=== PATIENT | male | born 1960 | race Native Hawaiian/Other Pacific Islander ===

== ENCOUNTER 2017-12-19 19:29 | Emergency (ER) | payer MEDICARE, OTHER ==
[2017-12-19] MEDS ORDERED: SODIUM CHLORIDE 0.9% 1,000 ML IV ONE ×3 (19:45→22:02)
[2017-12-19] MEDS ORDERED: PIPERACILLIN/TAZOBACTAM 4.5 GM in SODIUM CHLORIDE 0.9% MINIBAG 100 ML IV STA (19:54)
--- NOTE | 2017-12-19 19:58 | ED Physician Documentation ---
History of Present Illness - Stated complaint Stated Complaint: RT TOE INFECTION - Chief complaint Chief Complaint: General - History obtained from History obtained from: Patient, Family - History of Present Illness Timing: How many weeks ago (1) Pain level max: 0 Pain level now: 0 Improved by: nothing Worsened by: walking - Additonal information Additional information: Patient is a 57-year-old diabetic male with a history of hemodialysis which he stopped in 2015 after receiving a kidney transplant at [facility]. Still seen by the transplant group every 3 months. He is on Prograf and Rapamune. He has had a necrotic toe for at least the last week that is being followed by his primary care provider, the infection is now spread over the foot, increased swelling to the dorsum and plantar aspect of the foot. No fevers. Review of Systems Ten Systems: 10 systems reviewed and negative Constitutional: denies: Fever, Chills Nose: denies: Rhinorrhea / runny nose, Congestion Respiratory: denies: Cough GI: denies: Nausea, Vomiting, Diarrhea Skin: denies: Rash Musculoskeletal: denies: Neck pain, Back pain Neurologic: denies: Headache PD PAST MEDICAL HISTORY - Past Medical History Past Medical History: Yes Cardiovascular: Hypertension, High cholesterol Endocrine/Autoimmune: Type 2 diabetes - Past Surgical History Past Surgical History: Yes - Present Medications Home Medications: Ambulatory Orders Medication Instructions Recorded Confirmed Amlodipine/Atorvastatin 2.5 mg PO DAILY 12/19/17 12/19/17 [Amlodipine-Atorvast 2.5-20 mg] Calcitriol 0.25 mcg PO DAILY 12/19/17 12/19/17 Carvedilol [Coreg] 25 mg PO BID 12/19/17 12/19/17 Ergocalciferol [Vitamin D2] 50,000 unit PO 12/19/17 Insulin Aspart [NovoLOG] 0 units SQ DAILY 12/19/17 12/19/17 Insulin Detemir [Levemir Flextouch] 30 unit SUBQ BID 12/19/17 12/19/17 Mycophenolate Sodium [Mycophenolic 180 mg PO BID 12/19/17 12/19/17 Acid] Tacrolimus 1 mg PO BID 12/19/17 12/19/17 - Allergies Allergies/Adverse Reactions: Allergies Allergy/AdvReac Type Severity Reaction Status Date / Time No Known Drug Allergies Allergy Verified 12/19/17 19:55 - Social History Does the pt smoke?: No Smoking Status: Never smoker Does the pt drink ETOH?: No Does the pt have substance abuse?: No - Immunizations Immunizations are current?: Yes - POLST Patient has POLST: No PD ED PE NORMAL - Vitals Vital signs reviewed: Yes - General General: Alert and oriented X 3, No acute distress, Well developed/nourished - HEENT HEENT: Moist mucous membranes - Neck Neck: Supple, no meningeal sign - Cardiac Cardiac: RRR, Strong equal pulses - Respiratory Respiratory: No respiratory distress, Clear bilaterally - Abdomen Abdomen: Soft, Non tender, Non distended - Derm Derm: Warm and dry - Neuro Neuro: Alert and oriented X 3 Results - Vitals Vitals: Vital Signs - 24 hr 12/19/17 12/19/17 12/19/17 19:39 19:42 20:42 Temperature 36.4 C L Heart Rate 85 80 Respiratory 14 18 Rate Blood Pressure 74/47 L 100/50 L O2 Saturation 99 12/19/17 12/19/17 12/19/17 21:15 21:45 22:15 Temperature Heart Rate 81 80 79 Respiratory 20 20 18 Rate Blood Pressure 101/54 L 117/70 117/70 O2 Saturation 95 95 100 12/19/17 22:45 Temperature Heart Rate 77 Respiratory 18 Rate Blood Pressure 108/61 O2 Saturation 97 Oxygen O2 Source Room air - Labs Labs: Laboratory Tests 12/19/17 12/19/17 12/19/17 19:50 19:50 19:50 WBC 19.9 H RBC 3.86 L Hgb 11.0 L Hct 33.7 L MCV 87.3 MCH 28.5 MCHC 32.6 RDW 13.9 Plt Count 250 MPV 7.6 Neut # (Auto) 18.8 H Lymph # (Auto) 0.4 L [place] # (Auto) 0.7 Eos # (Auto) 0.0 Baso # (Auto) 0.0 Absolute Nucleated RBC 0.00 Nucleated RBC % 0.0 Sodium 123 L Potassium 4.5 Chloride 89 L Carbon Dioxide 19 L Anion Gap 15.0 H BUN 60 H Creatinine 2.6 H Estimated GFR (MDRD) 26 L Glucose 354 H Lactic Acid 1.5 Calcium 8.7 Total Bilirubin 1.0 AST 20 ALT 18 Alkaline Phosphatase 67 Total Protein 7.2 Albumin 2.7 L Globulin 4.5 H Albumin/Globulin Ratio 0.6 L Lipase 20 L - Rads (name of study) R foot xray Radiology: Prelim report reviewed, EMP read contemporaneously, See rad report ( No fracture or focal bony lesion. Soft tissue swelling with subcutaneous air) PD MEDICAL DECISION MAKING - ED course Complexity details: reviewed results, re-evaluated patient, considered differential, d/w patient, d/w family, d/w financial sales consultant ED course: Patient is a 57-year-old diabetic male who presents to the emergency department with a necrotic right fifth toe, gangrenous infection spreading at least through the midfoot on the plantar aspect. Given Vanco and Zosyn after discussion with Dr. Velazquez, hospitalist at [facility] who graciously accepts in transfer at 1999. Blood cultures drawn. Lactate is normal. White blood cell count 19.9. Right foot x-ray was performed. Patient will be transferred to [facility] for further care as that was where his transplant was done and the transplant team still follows him. This document was made in part using voice recognition software. While efforts are made to proofread this document, sound alike and grammatical errors may occur. - Sepsis Event Vital Signs: Vital Signs - 24 hr 12/19/17 12/19/17 12/19/17 19:39 19:42 20:42 Temperature 36.4 C L Heart Rate 85 80 Respiratory 14 18 Rate Blood Pressure 74/47 L 100/50 L O2 Saturation 99 12/19/17 12/19/17 12/19/17 21:15 21:45 22:15 Temperature Heart Rate 81 80 79 Respiratory 20 20 18 Rate Blood Pressure 101/54 L 117/70 117/70 O2 Saturation 95 95 100 12/19/17 22:45 Temperature Heart Rate 77 Respiratory 18 Rate Blood Pressure 108/61 O2 Saturation 97 Oxygen O2 Source Room air Departure - Departure Disposition: 02 Transfer Acute Care Hosp Clinical Impression: Gangrenous toe, Diabetic foot infection, Foot abscess, right Condition: Stable
[2017-12-19 20:04] LABS: BASOPHILS % (AUTO) 0.2 %; LYMPHOCYTES # (AUTO) 0.4 10^3/uL (1.5-3.5); MEAN CORPUSCULAR HEMOGLOBIN 28.5 pg (27.0-31.0); MEAN CORPUSCULAR HGB CONC 32.6 g/dL (32.0-36.0); MEAN CORPUSCULAR VOLUME 87.3 fL (80.0-94.0); MEAN PLATELET VOLUME 7.6 fL (7.4-11.4); MONOCYTES # (AUTO) 0.7 10^3/uL (0.0-1.0); MONOCYTES % (AUTO) 3.5 %; NEUTROPHILS # (AUTO) 18.8 10^3/uL (1.5-6.6); NEUTROPHILS % (AUTO) 94.3 %; PLT - PLATELET COUNT 250 10^3/uL (130-450); RED BLOOD COUNT 3.86 10^6/uL (4.70-6.10); RED CELL DISTRIBUTION WIDTH 13.9 % (12.0-15.0); WHITE BLOOD COUNT 19.9 x10^3/uL (4.8-10.8)
[2017-12-19] MEDS ORDERED: VANCOMYCIN INJ 1 GM in SODIUM CHLORIDE 0.9% 500 ML IV STA (20:10)
[2017-12-19 20:14] LABS: ALBUMIN 2.7 g/dL (3.2-5.5); ALBUMIN/GLOBULIN RATIO 0.6 (1.0-2.2); CALCIUM 8.7 mg/dL (8.5-10.3); CREATININE 2.6 mg/dL (0.6-1.2); TOTAL PROTEIN 7.2 g/dL (6.7-8.2)
--- NOTE | 2017-12-19 20:47 | XRAY Report ---
Procedure Date: 12/19/2017 Accession Number: [id number] / [id number] Procedure: XR - Foot 3 View RT CPT Code: FULL RESULT: EXAM: RIGHT FOOT RADIOGRAPHY EXAM DATE: 12/19/2017 08:16 PM. CLINICAL HISTORY: Necrotic 5th toe, swelling plantar. COMPARISON: None. TECHNIQUE: 3 views. FINDINGS: Bones: No fracture or focal bony lesion. Joints: No evidence of dislocation. Soft Tissues: There is extensive subcutaneous air. There is diffuse soft tissue swelling. There are vascular calcifications. IMPRESSION: 1. No fracture or focal bony lesion. 2. There is soft tissue swelling with subcutaneous air. RADIA
[2017-12-19 23:29] VITALS: BP 101/59
== END 2017-12-19 23:32 | disposition short-term general hospital (02) ==
LOC: ED 19:29
DX: E11.52 Type 2 diabetes mellitus with diabetic peripheral angiopathy with gangrene (principal); I96 Gangrene, not elsewhere classified; L02.611 Cutaneous abscess of right foot; Z79.4 Long term (current) use of insulin; I10 Essential (primary) hypertension; E78.00 Pure hypercholesterolemia, unspecified; Z94.0 Kidney transplant status
CPT/HCPCS: 36415; 73630; 80053; 83605; 83690; 85025; 87040; 96365; 96366; 96367; 99284; 99285; J3370